=== PATIENT | male | born 1965 | race Caucasian/White ===

== ENCOUNTER 2021-08-28 11:26 | Outpatient (CLI) | payer OTHER ==
[~2021-08-28] VITALS: Ht 183 cm; Wt 88.9 kg
[~2021-08-28 11:26] MED LIST: ASPIRIN E.C. 8181 MG PO; COMBIGAN 0.2%-0.5 ML; LIPITOR 80MG80 MG PO; PRIL40 PO; PRINIVIL10 MG PO; PROSCAR 5MG5 MG PO; TOPROL XL 50MG50 MG PO; UROXATRAL10 M1 PO; XALATAN EYE DROPS OU
[2021-08-28 12:03] LABS: BASO # 0.1 K/mm3 (0.0-0.2); BASO % 0.9 % (0.0-2.0); EOS # 0.1 K/mm3 (0.0-0.7); EOS % 1.8 % (0.0-4.0); GRAN # 3.7 K/mm3 (1.4-6.5); HEMOGLOBIN 15.2 g/dl (13.5-18.0); LYMPH # 1.3 K/mm3 (1.2-3.4); LYMPH % 23.4 % (20.0-51.0); MEAN CELL VOLUME 87 fl (80.0-100.0); MEAN CORPUSCULAR HEMOGLOBIN 31 pg (27-31); MEAN CORPUSCULAR HGB CONC 35 g/dl (33.0-37.0); MEAN PLATELET VOLUME 9.7 fl (7.4-10.4); MONO # 0.4 K/mm3 (0.1-0.6); MONO % 7.5 % (1.7-9.3); PLATELET COUNT 191 K/mm3 (130-400); RED BLOOD COUNT 4.94 M/mm3 (4.20-5.60); REDCELL DISTRIBUTION WIDTH-CV 12.6 % (11.5-14.5)
[2021-08-28 12:14] LABS: PROTHROMBIN TIME 11.3 SECONDS (9.7-12.8)
[2021-08-28 12:16] LABS: CALCIUM 8.8 mg/dL (8.4-10.2); CREATININE, serum 1.1 mg/dL (0.72-1.25); POTASSIUM 4.1 mmol/L (3.5-4.5)
[2021-08-28 12:36] VITALS: BP 120/84; PULSE 66; TEMP 97.8
[2021-08-28 13:32] VITALS: BP 123/78; PULSE 77
[2021-08-28 13:45] VITALS: BP 122/82; PULSE 74
[2021-08-28 14:00] VITALS: BP 133/89; PULSE 68
[2021-08-28 14:15] VITALS: BP 130/86; PULSE 65
--- NOTE | 2021-08-28 15:20 | NUR ---
Pt did well during his recovery. Pt has remained pwd with reg and unlabored respiration. drinking water with no problem. i have reviewed dc/fu instructions with pt who verbed understanding. iv dc'd. pt is up and steady on feet. here to pick him up. to exit via wheelchair.
== END 2021-08-28 16:22 ==
LOC: COL.RAD 11:26
PROVIDERS: Internal Medicine Cardiovascular Disease
DX: I35.2 Nonrheumatic aortic (valve) stenosis with insufficiency (principal)
CPT/HCPCS: J2704